=== PATIENT | female | born 1950 | race Caucasian/White ===

== ENCOUNTER 2024-11-18 15:04 | Outpatient (CLI) | payer MEDICARE | END 2024-11-18 15:05 | disposition home or self-care (01) | LOC: CSHRAD 15:04 | PROVIDERS: ATTEND Internal Medicine | DX: M47.816 Spondylosis without myelopathy or radiculopathy, lumbar region (principal); M41.86 Other forms of scoliosis, lumbar region | CPT/HCPCS: 72100 ==